=== PATIENT | female | born 1935 | race African-American/Black ===

== ENCOUNTER 2018-06-22 06:03 | Day surgery (SDC) | payer MEDICARE, BC ==
--- NOTE | 2018-06-19 11:43 | Opthalmology H&P ---
Ophthalmology H&P H&P Chief Complaint: decreased vision in right eye HPI Vision Affects Ability to: read, focus/use eyes together HPI Narrative Blurry Vision right Eye Exam Visual Acuity: OD 20/80 OS 20/50 Eye Exam: normal OU: external exam, palpebral fissure-width, marginal reflex distance, levator function, corneas, anterior chambers, fundus exam; findings: lens - +3 NS Cataract Right Eye Assessment/Plan Treatment Plan: cataract extraction w/ lens implant Goals of Treatment: improvement of vision, enhance quality of life Attestation Attestation The risks and benefits of the surgery as well as alternative procedures were explained to the patient in detail. Viraj Chavez MD Jun 19, 2018 11:43
--- NOTE | 2018-06-19 11:46 | Pre-Procedure Note/Attestation ---
Pre-Procedure Note/Attestation Complete Prior to Procedure Planned Procedure: right Procedure Narrative: Cataract Extraction With IOL Implant Right Eye Indications for Procedure Pre-Operative Diagnosis: Nuclear Sclerotic Cataract Right Eye Attestation I attest that I discussed the nature of the procedure; its benefits; risks and complications; and alternatives (and the risks and benefits of such alternatives ), prior to the procedure, with the patient (or the patient's legal malt liquors sales representative). I attest that, if there was a reasonable possibility of needing a blood transfusion, the patient (or the patient's legal malt liquors sales representative) was given the [facility] standardized written summary, pursuant to the [place] Blood Safety Act ([place] Health and Safety Code # 1645, as amended). I attest that I re-evaluated the patient just prior to the surgery and that there has been no change in the patient's H&P, except as documented below: Viraj Chavez MD Jun 19, 2018 11:46
[~2018-06-22] VITALS: Ht 152.4 cm; Wt 75.7 kg
[2018-06-22] VITALS (9 sets, daily range): BP systolic 95–132; BP diastolic 50–76
[2018-06-22] MEDS ORDERED: Dexamethasone 4mg/ml vial ONE (07:00)
[2018-06-22] MEDS ORDERED: Pred Forte 1% Opth Susp 1ml ONE (07:00)
[2018-06-22] MEDS ORDERED: Pilocarpine 1% Opth 15ml Soln ONE (07:00)
[2018-06-22] MEDS ORDERED: Maxitrol Opth Oint 3.5gm ONE (07:00)
[2018-06-22] MEDS ORDERED: Tropicamide 1% Opth 15ml Soln RIGHT EYE SCH (07:00)
[2018-06-22] MEDS ORDERED: Akten 3.5% 1ml Btl RIGHT EYE ONE (07:00)
[2018-06-22] MEDS ORDERED: Tetracaine 0.5% Opth 4ml Soln RIGHT EYE ONE (07:00)
[2018-06-22] MEDS ORDERED: Cyclopentolate 1% Opth Sol 2ml RIGHT EYE SCH (07:00)
[2018-06-22] MEDS ORDERED: Proparacaine 0.5% Opth Soln 15ml RIGHT EYE ONE (07:00)
[2018-06-22] MEDS ORDERED: Diclofenac Sod 0.1% Op Soln RIGHT EYE SCH (07:00)
[2018-06-22] MEDS ORDERED: Phenylephrine 10% Opth Soln 5ml RIGHT EYE SCH (07:00)
[2018-06-22] MEDS ORDERED: PROTONIX40 MG ORAL (08:22)
[2018-06-22] MEDS ORDERED: FOLIC ACID1 MG ORAL (08:22)
[2018-06-22] MEDS ORDERED: AMBIEN5 MG ORAL (08:22)
[2018-06-22] MEDS ORDERED: CRESTOR20 MG ORAL (08:22)
[2018-06-22] MEDS ORDERED: TRAMADOL HCL50 MG ORAL (08:22)
[2018-06-22] MEDS ORDERED: AVAPRO300 MG ORAL (08:22)
[2018-06-22] MEDS ORDERED: MELOXICAM15 MG PO (08:22)
[2018-06-22] MEDS ORDERED: AMLODIPINE BESYL5 MG ORAL (08:22)
[2018-06-22] MEDS ORDERED: MOVANTIK25 MG PO (08:22)
[2018-06-22] MEDS ORDERED: KLOR-CON 1010 MEQ ORAL (08:22)
[2018-06-22] MEDS ORDERED: HYDROCHLOROTHIA25 MG ORAL (08:22)
[2018-06-22] MEDS ORDERED: METFORMIN HCL500 M1 ORAL (08:22)
[2018-06-22] MEDS ORDERED: fentaNYL 100 mcg/2 mL IV ONE (08:46)
--- NOTE | 2018-06-22 08:51 | Anethesia Preoperative Eval ---
Anesthesia Pre-op PMH/ROS General Date of Evaluation: Jun 22, 2018 Time of Evaluation: 08:50 Anesthesiologist: Kayden ASA Score: ASA 3 Mallampati Score Class I : Soft palate, uvula, fauces, pillars visible Class II: Soft palate, uvula, fauces visible Class III: Soft palate, base of uvula visible Class IV: Only hard plate visible Mallampati Classification: Class II Surgeon: Kathy Diagnosis: R eye catarat Surgical Procedure: R eye cataract extraction Anesthesia History: none Allergies: Coded Allergies: No Known Allergies (Unverified , 06/19/18) Medications: see eMAR Patient NPO?: Yes Past Medical History Cardiovascular: Reports: HTN; Denies: CAD, PR, valve dz, arrhythmia, other Pulmonary: Denies: asthma, COPD, [place]RIST[place], other Gastrointestinal/Genitourinary: Reports: GERD Neurologic/Psychiatric: Reports: depression/anxiety, other - chronic pain; Denies: dementia, CVA, TIA Endocrine: Denies: DM, hypothyroidism, steroids, other HEENT: Reports: cataract (L), cataract (R); Denies: glaucoma, [place] (L), [place] (R), other Hematology/Immune: Reports: anemia - mild; Denies: DVT, bleeding disorder, other Musculoskeletal/Integumentary: Reports: DJD; Denies: OA, RA, DDD, edema, other Other: other - overweight PMH Narrative: as above PSxH Narrative: BLESSING, spinal cord stimulator placement Anesthesia Pre-op Phys. Exam Physician Exam Last Vital Signs Date Time Temp Pulse Resp B/P (MAP) Pulse Ox O2 Delivery O2 Flow Rate FiO2 06/22/18 07:55 97.8 60 16 119/57 100 Room Air Constitutional: NAD Neurologic: CN 2-12 intact Cardiovascular: RRR, no M/R/G Respiratory: CTA Gastrointestinal: S/NT/ND Airway Exam Mallampati Score: Class II MO: full Neck: stiff ROM: limited Teeth: missing Dentures: upper, lower Anesthesia Pre-op A/P Labs see chart Studies Pre-op Studies: EKG - NSR Risk Assessment & Plan Status Change Before Surgery: No Pre-Antibiotics Drug: none Igor Monique MD Jun 22, 2018 08:51
[2018-06-22] MEDS ORDERED: acetaZOLAMIDE 500mg Inj ONE (09:05)
[2018-06-22] MEDS ORDERED: BSS 500ml btl ONE (09:05)
[2018-06-22] MEDS ORDERED: EPINEPHrine 1mg/1ml Amp ONE (09:05)
[2018-06-22] MEDS ORDERED: BSS 15ml BTL ONE (09:05)
[2018-06-22] MEDS ORDERED: Povidone-Iodine 5% opth solution ONE ×2 (09:06→09:35)
[2018-06-22] MEDS ORDERED: Sodium Hyaluronate 14 mg/ml 0.85ml ONE (09:06)
[2018-06-22] MEDS ORDERED: Sterile Water Irrig 1000ml IRRIG ONE (09:30)
[2018-06-22] MEDS ORDERED: Tobramycin Op Soln 0.3% 5ml RIGHT EYE SCH (09:30)
[2018-06-22] MEDS ORDERED: LR 1000ml 1,000 ML IVLG SCH (09:30)
[2018-06-22] MEDS ORDERED: NS Irrig 1000ml ONE (09:30)
[2018-06-22] MEDS ORDERED: Midazolam 2mg/2ml Inj ONE (09:30)
[2018-06-22] MEDS ORDERED: fentaNYL 100 mcg/2 mL IV PRN (09:30)
--- NOTE | 2018-06-22 09:56 | Immediate Post-Op Evaluation ---
Immediate Post-Op Evalulation Immediate Post-Op Evalulation Procedure: R eye cataract extraction with IOL Date of Evaluation: Jun 22, 2018 Time of Evaluation: 09:55 IV Fluids: 200 Blood Products: none Estimated Blood Loss: none Urinary Output: none Blood Pressure Systolic: 127 Blood Pressure Diastolic: 58 Pulse Rate: 58 Respiratory Rate: 20 O2 Sat by Pulse Oximetry: 98 Temperature (Fahrenheit): 97.6 Pain Score (1-10): 1 Nausea: No Vomiting: No Complications none Patient Status: awake, patent, none Hydration Status: adequate Igor Monique MD Jun 22, 2018 09:56
--- NOTE | 2018-06-22 10:44 | 48 Hour Post Anesthesia Eval ---
Post Anesthesia Evaluation Procedure: R eye cataract extraction with IOL Date of Evaluation: Jun 22, 2018 Time of Evaluation: 10:43 Blood Pressure Systolic: 116 0: 74 Pulse Rate: 68 Respiratory Rate: 20 Temperature (Fahrenheit): 97.6 O2 Sat by Pulse Oximetry: 98 Airway: patent Nausea: No Vomiting: No Pain Intensity: 1 Hydration Status: adequate Cardiopulmonary Status: stable Mental Status/LOC: patient returned to baseline Follow-up Care/Observations: n/a Post-Anesthesia Complications: none Follow-up care needed: ready to discharge Igor Monique MD Jun 22, 2018 10:44
--- NOTE | 2018-06-23 13:46 | Brief Operative Note ---
Immediate Post Operative Note Operative Note Chief Complaint: blurry vision Pre-op Diagnosis: Nuclear Sclerotic Cataract Right Eye Procedure: phaco with IOL Post-op Diagnosis: Pseudophakia Post-op Diagnosis: same as pre-op Findings: consistent w/pre-op dx studies Surgeon: Kathy Anesthesiologist: Kayden Anesthesia: MAC Specimen: none Complications: none Condition: stable Fluids: LR Estimated Blood Loss: none Drains: none Implant(s) used?: Yes Viraj Chavez MD Jun 23, 2018 13:46
--- NOTE | 2018-06-23 13:47 | Operative Note - PDOC ---
Operative Note Operative Note Date of Operation/Procedure: Jun 22, 2018 Chief Complaint: blurry vision Pre-op Diagnosis: Nuclear Sclerotic Cataract Right Eye Procedure: phaco with IOL Post-op Diagnosis: Pseudophakia Post-op Diagnosis: same as pre-op Operative Findings: consistent w/pre-op dx studies Surgeon: Kathy Anesthesiologist: Kayden Anesthesia: MAC Specimen: none Complications: none Condition: stable Fluids: LR Estimated Blood Loss: none Drains: none Implant(s) used?: Yes Indications for Procedure cataract Description of Procedure This patient has been complaining visually significant cataract in the affected eye with the best corrected visual acuity under moderate glare conditions worse. The patient complains of difficulties with glare in performing activities of daily living and wants to manage personal affairs with comfort and accuracy and see well enough to move with safety at home and outdoors. The risks, benefits and alternatives of the procedure were discussed with the patient in the office prior to scheduling surgery. All questions from the patient were answered after the surgical procedure was explained in detail. The risks of the procedure as explained to the patient include, but are not limited to, pain, infection, bleeding, loss of vision, retinal detachment, need for further surgery, loss of lens nucleus, double vision, etc. Alternative procedures were discussed which include, to do nothing or seek a second opinion. Informed consent for this procedure was obtained from the patient. The patient was referred to a primary care physician for a cardiopulmonary clearance prior to surgery, after proper evaluation was done patient was properly scheduled for outpatient surgery. The patient was brought to the operating room where the anesthesiologist established I.V. lines and cardiac monitoring leads. Mild intravenous sedation was administered. The patient was then prepared with a 5% solution of povidone -iodine to the conjunctival fornix and lashes, and a 5% solution of povidone- iodine to the lids and periorbital skin. The patient was then draped in the usual sterile fashion. A lid speculum was then placed in the operative eye. A keratome blade was then used to create a biplanar incision into the anterior chamber. Viscoelastics was then instilled into the anterior chamber. A curvilinear capsulorrhexis was then fashioned with an utrata forceps. A BSS was used with G-27 cannula was used for hydrodissection and hydrodelineation the lens nucleus. Paracentesis incision was made at 9 o'clock with sharp blade. The phacoemulsification unit, after being properly adjusted and tested, was then used to emulsify the nucleus. Residual cortical material was aspirated with the irrigation and aspiration unit. Healon was then instilled into the anterior chamber. The corneal wound was then enlarged to the size of the optic with the saad keratome blade. The intraocular lens was then inspected for right power and size and thought to be satisfactory. Then the lens was gently placed in the capsular bag. Positioning within the capsular bag was confirmed by direct visualization. Optic centration was accomplished with a Sinskey hook. Viscoelastics was removed from the anterior chamber using the irrigation and aspiration unit. The corneal wound was then tested for leaks and none were found. The lid speculum were then removed. Sponge and needle counts were correct. An eye patch and shield were placed over the operative eye. The patient was taken to the recovery room in stable condition. There were no complications. The patient tolerated the procedure well. The patient was then transferred to the ambulatory surgery unit in stable and satisfactory condition , was given detailed written instructions and asked to follow up in the office the next day. Viraj Chavez MD Jun 23, 2018 13:46
== END 2018-06-22 11:30 | disposition home or self-care (01) ==
LOC: SUR 06:03
DX: H25.11 Age-related nuclear cataract, right eye (principal); I10 Essential (primary) hypertension; E66.9 Obesity, unspecified; K21.9 Gastro-esophageal reflux disease without esophagitis; E10.9 Type 1 diabetes mellitus without complications; D64.9 Anemia, unspecified; F32.9 Major depressive disorder, single episode, unspecified; F41.9 Anxiety disorder, unspecified; G89.29 Other chronic pain; M47.897 Other spondylosis, lumbosacral region; Z90.710 Acquired absence of both cervix and uterus
CPT/HCPCS: 66984; 82962; J0171; J1100; J2250; J3010; J3370; V2632; 94003; 94150

== ENCOUNTER 2018-08-03 06:20 | Day surgery (SDC) | payer MEDICARE, BC ==
--- NOTE | 2018-07-31 12:05 | Opthalmology H&P ---
Ophthalmology H&P H&P Chief Complaint: decreased vision in left eye HPI Vision Affects Ability to: read, manage personal affairs HPI Narrative Blurry Vision Exam Visual Acuity: OD 20/30 OS 20/80 Tension: OD 16 OS 15 Eye Exam: normal OU: external exam, palpebral fissure-width, marginal reflex distance, levator function, corneas, anterior chambers, lens, fundus exam Assessment/Plan Treatment Plan: cataract extraction w/ lens implant Goals of Treatment: improvement of vision, enhance quality of life Attestation Attestation The risks and benefits of the surgery as well as alternative procedures were explained to the patient in detail. Viraj Chavez MD Jul 31, 2018 12:05
--- NOTE | 2018-07-31 12:06 | Pre-Procedure Note/Attestation ---
Pre-Procedure Note/Attestation Complete Prior to Procedure Planned Procedure: left Procedure Narrative: Cataract Extraction With Intraocular Lens Implant Left Eye Indications for Procedure Pre-Operative Diagnosis: Cataract Left Eye Attestation I attest that I discussed the nature of the procedure; its benefits; risks and complications; and alternatives (and the risks and benefits of such alternatives ), prior to the procedure, with the patient (or the patient's legal community relations representative). I attest that, if there was a reasonable possibility of needing a blood transfusion, the patient (or the patient's legal community relations representative) was given the [facility] standardized written summary, pursuant to the [place] Blood Safety Act ([place] Health and Safety Code # 1645, as amended). I attest that I re-evaluated the patient just prior to the surgery and that there has been no change in the patient's H&P, except as documented below: Viraj Chavez MD Jul 31, 2018 12:06
[2018-08-03] VITALS (8 sets, daily range): BP systolic 100–132; BP diastolic 58–64
[~2018-08-03] VITALS: Ht 152.4 cm; Wt 75.7 kg
[~2018-08-03 06:20] MED LIST: AMBIEN5 MG ORAL; AMLODIPINE BESYL5 MG ORAL; AVAPRO300 MG ORAL; CRESTOR20 MG ORAL; FOLIC ACID1 MG ORAL; HYDROCHLOROTHIA25 MG ORAL; KLOR-CON 1010 MEQ ORAL; MELOXICAM15 MG PO; METFORMIN HCL500 M1 ORAL; MOVANTIK25 MG PO; PROTONIX40 MG ORAL; TRAMADOL HCL50 MG ORAL
[2018-08-03] MEDS ORDERED: Akten 3.5% 1ml Btl LEFT EYE ONE (07:00)
[2018-08-03] MEDS ORDERED: Tetracaine 0.5% Opth 4ml Soln LEFT EYE ONE (07:00)
[2018-08-03] MEDS ORDERED: Proparacaine 0.5% Opth Soln 15ml LEFT EYE ONE (07:00)
[2018-08-03] MEDS ORDERED: BSS 15ml BTL ONE (07:37)
[2018-08-03] MEDS ORDERED: BSS 500ml btl ONE (07:37)
[2018-08-03] MEDS ORDERED: Povidone-Iodine 5% opth solution ONE (07:37)
[2018-08-03] MEDS ORDERED: Sodium Hyaluronate 14 mg/ml 0.85ml ONE (07:38)
--- NOTE | 2018-08-03 07:43 | Anethesia Preoperative Eval ---
Anesthesia Pre-op PMH/ROS General Date of Evaluation: Aug 03, 2018 Anesthesiologist: Kemal ASA Score: ASA 2 Mallampati Score Class I : Soft palate, uvula, fauces, pillars visible Class II: Soft palate, uvula, fauces visible Class III: Soft palate, base of uvula visible Class IV: Only hard plate visible Mallampati Classification: Class II Surgeon: Kathy Diagnosis: Left cataract Surgical Procedure: Left cataract extraction with IOL Anesthesia History: none Family History: no anesthesia problems Allergies: Coded Allergies: No Known Allergies (Unverified , 08/03/18) Medications: see eMAR Patient NPO?: Yes NPO Date: Aug 02, 2018 NPO Time: 22:00 Past Medical History Cardiovascular: Reports: HTN; Denies: CAD, [place], valve dz, arrhythmia, other Pulmonary: Denies: asthma, COPD, CHRISTINA, other Gastrointestinal/Genitourinary: Reports: GERD; Denies: CRI, ESRD, other Neurologic/Psychiatric: Reports: depression/anxiety; Denies: dementia, CVA, TIA, other Endocrine: Reports: DM; Denies: hypothyroidism, steroids, other HEENT: Reports: cataract (L), cataract (R); Denies: glaucoma, [place] (L), [place] (R), other Hematology/Immune: Denies: anemia, DVT, bleeding disorder, other Musculoskeletal/Integumentary: Reports: DJD, other - scoliosis; Denies: OA, RA, DDD, edema PSxH Narrative: Bilateral TKRs, neural stimulator Anesthesia Pre-op Phys. Exam Physician Exam see chart Constitutional: NAD Cardiovascular: RRR Respiratory: CTA Airway Exam Mallampati Score: Class II MO: limited ROM: limited Teeth: missing Dentures: upper Anesthesia Pre-op A/P Labs see chart Studies Pre-op Studies: EKG Risk Assessment & Plan Assessment: ASA II Plan: MAC Status Change Before Surgery: No Pre-Antibiotics Drug: N/A Tess Gonzalez MD Aug 03, 2018 07:43
[2018-08-03] MEDS: Cyclopentolate 1% Opth Sol 2ml LEFT EYE SCH ×3 (08:36→08:54)
[2018-08-03] MEDS: Tropicamide 1% Opth 15ml Soln LEFT EYE SCH ×3 (08:36→08:54)
[2018-08-03] MEDS: Phenylephrine 10% Opth Soln 5ml LEFT EYE SCH ×3 (08:36→08:54)
[2018-08-03] MEDS: Diclofenac Sod 0.1% Op Soln LEFT EYE SCH ×3 (08:37→08:54)
[2018-08-03] MEDS: Tobramycin Op Soln 0.3% 5ml LEFT EYE SCH ×3 (08:37→08:54)
[2018-08-03] MEDS ORDERED: LISINOPRIL10 MG ORAL (08:46)
[2018-08-03] MEDS ORDERED: LR 1000ml 1,000 ML IVLG SCH (09:38)
[2018-08-03] MEDS ORDERED: DiphenhydrAMINE 50mg/ml Inj IVP PRN (09:45)
[2018-08-03] MEDS ORDERED: Midazolam 2mg/2ml Inj ONE (10:20)
[2018-08-03] MEDS ORDERED: Lidocaine 1% MPF 10mg/ml 5ml ONE (10:20)
[2018-08-03] MEDS ORDERED: fentaNYL 100 mcg/2 mL IV ONE (10:20)
[2018-08-03] MEDS ORDERED: EPINEPHrine 1mg/1ml Amp ONE (11:00)
[2018-08-03] MEDS ORDERED: Maxitrol Opth Oint 3.5gm ONE (11:00)
[2018-08-03] MEDS ORDERED: Sterile Water Irrig 1000ml IRRIG ONE (11:00)
[2018-08-03] MEDS ORDERED: Dexamethasone 4mg/ml vial ONE (11:00)
[2018-08-03] MEDS ORDERED: Pred Forte 1% Opth Susp 1ml ONE (11:00)
[2018-08-03] MEDS ORDERED: NS Irrig 1000ml ONE (11:00)
[2018-08-03] MEDS ORDERED: LR 1000ml ONE (11:00)
[2018-08-03] MEDS ORDERED: Pilocarpine 1% Opth 15ml Soln ONE (11:00)
--- NOTE | 2018-08-03 11:43 | Immediate Post-Op Evaluation ---
Immediate Post-Op Evalulation Immediate Post-Op Evalulation Procedure: Left cataract extraction with IOL Date of Evaluation: Aug 03, 2018 Time of Evaluation: 11:45 IV Fluids: 400 Blood Products: 0 Estimated Blood Loss: 0 Urinary Output: 0 Blood Pressure Systolic: 118 Blood Pressure Diastolic: 61 Pulse Rate: 75 Respiratory Rate: 16 O2 Sat by Pulse Oximetry: 100 Temperature (Fahrenheit): 98.3 Pain Score (1-10): 0 Nausea: No Vomiting: No Complications 0 Patient Status: awake, reacts, patent, none Hydration Status: adequate Drug: N/A Tess Gonzalez MD Aug 03, 2018 11:43
--- NOTE | 2018-08-03 11:44 | 48 Hour Post Anesthesia Eval ---
Post Anesthesia Evaluation Procedure: Left cataract extraction with IOL Date of Evaluation: Aug 03, 2018 Airway: patent Nausea: No Vomiting: No Pain Intensity: 0 Hydration Status: adequate Cardiopulmonary Status: at baseline Mental Status/LOC: patient returned to baseline Post-Anesthesia Complications: 0 Follow-up care needed: ready to discharge Tess Gonzalez MD Aug 03, 2018 11:44
--- NOTE | 2018-08-04 12:43 | Brief Operative Note ---
Immediate Post Operative Note Operative Note Chief Complaint: blurry vision Pre-op Diagnosis: Cataract Left Eye Procedure: Phaco with IOL Post-op Diagnosis: Pseudophakia Post-op Diagnosis: same as pre-op Findings: consistent w/pre-op dx studies Surgeon: Kathy Anesthesiologist: Victor Manuel Anesthesia: MAC Specimen: none Complications: none Condition: stable Fluids: LR Estimated Blood Loss: none Drains: none Implant(s) used?: Yes Viraj Chavez MD Aug 04, 2018 12:43
--- NOTE | 2018-08-04 12:44 | Operative Note - PDOC ---
Operative Note Operative Note Date of Operation/Procedure: Aug 03, 2018 Chief Complaint: blurry vision Pre-op Diagnosis: Cataract Left Eye Procedure: Phaco with IOL Post-op Diagnosis: Pseudophakia Post-op Diagnosis: same as pre-op Operative Findings: consistent w/pre-op dx studies Surgeon: Kathy Anesthesiologist: Victor Manuel Anesthesia: MAC Specimen: none Complications: none Condition: stable Fluids: LR Estimated Blood Loss: none Drains: none Implant(s) used?: Yes Indications for Procedure cataract Description of Procedure This patient has been complaining visually significant cataract in the affected eye with the best corrected visual acuity under moderate glare conditions worse. The patient complains of difficulties with glare in performing activities of daily living and wants to manage personal affairs with comfort and accuracy and see well enough to move with safety at home and outdoors. The risks, benefits and alternatives of the procedure were discussed with the patient in the office prior to scheduling surgery. All questions from the patient were answered after the surgical procedure was explained in detail. The risks of the procedure as explained to the patient include, but are not limited to, pain, infection, bleeding, loss of vision, retinal detachment, need for further surgery, loss of lens nucleus, double vision, etc. Alternative procedures were discussed which include, to do nothing or seek a second opinion. Informed consent for this procedure was obtained from the patient. The patient was referred to a primary care physician for a cardiopulmonary clearance prior to surgery, after proper evaluation was done patient was properly scheduled for outpatient surgery. The patient was brought to the operating room where the anesthesiologist established I.V. lines and cardiac monitoring leads. Mild intravenous sedation was administered. The patient was then prepared with a 5% solution of povidone -iodine to the conjunctival fornix and lashes, and a 5% solution of povidone- iodine to the lids and periorbital skin. The patient was then draped in the usual sterile fashion. A lid speculum was then placed in the operative eye. A keratome blade was then used to create a biplanar incision into the anterior chamber. Viscoelastics was then instilled into the anterior chamber. A capsulorrhexis was then fashioned with an utrata forceps followed by hydrodissection and hydro delineation of the lens nucleus. Paracentesis incision was made at 3 o'clock with sharp blade. The phacoemulsification unit, after being properly adjusted and tested, was then used to emulsify the nucleus followed by aspiration and irrigation of residual cortical material. Healon was then instilled into the anterior chamber. The corneal wound was then enlarged to the size of the optic with the saad keratome blade. The intraocular lens was then inspected for right power and size and thought to be satisfactory. Then the lens was gently placed in the capsular bag. Positioning within the capsular bag was confirmed by direct visualization. Optic centration was accomplished with a Sinskey hook. Viscoelastics was removed from the anterior chamber using the irrigation and aspiration unit. The corneal wound was then tested for leaks and none were found. The lid speculum were then removed. Sponge and needle counts were correct. An eye patch and shield were placed over the operative eye. The patient was taken to the recovery room in stable condition. There were no complications. The patient tolerated the procedure well. The patient was then transferred to the ambulatory surgery unit in stable and satisfactory condition , was given detailed written instructions and asked to follow up in the office the next day. Viraj Chavez MD Aug 04, 2018 12:44
--- NOTE | 2018-08-05 19:00 | Physician Query ---
--------- THIS DOCUMENT IS A PERMANENT PART OF THE MEDICAL RECORD --------- PLEASE COMPLETE DOCUMENT BEFORE SIGNING Dear Dr. DEGROOT Date: 08/05/18 Interior Design Principal/CDS Name: SujitLARISA, CCS Exercise your independent professional judgment when responding to the query. Questions asked do not imply a particular answer is desired or expected. We greatly appreciate your clarification on this issue. CLINICAL DOCUMENTATION STATES: Date of Operation/Procedure: Aug 03, 2018 Chief Complaint: blurry vision Pre-op Diagnosis: Cataract Left Eye Procedure: Phaco with IOL Post-op Diagnosis: Pseudophakia Post-op Diagnosis: same as pre-op Operative Findings: consistent w/pre-op dx studies Please respond to the following question: Is there a diagnosis specific to these symptoms or values? If so please state below. PLEASE SPECIFY IF KNOWN THE TYPE OF CATARACT IN LEFT EYE: PHYSICIAN RESPONSE: TAIWO DEGROOT M.D. [facility]
== END 2018-08-03 12:35 | disposition home or self-care (01) ==
LOC: SUR 06:20
DX: H25.12 Age-related nuclear cataract, left eye (principal); H25.012 Cortical age-related cataract, left eye; I10 Essential (primary) hypertension; E11.9 Type 2 diabetes mellitus without complications; M47.9 Spondylosis, unspecified; Z96.653 Presence of artificial knee joint, bilateral; K21.9 Gastro-esophageal reflux disease without esophagitis; E66.9 Obesity, unspecified; Z68.32 Body mass index [BMI] 32.0-32.9, adult; F32.9 Major depressive disorder, single episode, unspecified; F41.9 Anxiety disorder, unspecified; M41.9 Scoliosis, unspecified
CPT/HCPCS: 66984; 82962; J0171; J1100; J2250; J3010; J3370; V2632; 94003; 94150